=== PATIENT | female | born 1990 | race Caucasian/White ===

== ENCOUNTER 2016-04-21 23:41 | Emergency (ER) | payer MEDICAID ==
[~2016-04-21 23:41] MED LIST: DEMEROL50 MG PO; MOTRIN600 MG PO; PRENATAL COMPLE1 TAB PO
[2016-04-22 00:11] LABS: BASOPHILS 0.2 % (0.0-2.0); EOSINOPHILS 0.8 % (0-7); HEMATOCRIT 38.5 % (36.0-48.0); HEMOGLOBIN 12.8 g/dL (12-16); IMMATURE GRANULOCYTES 0.2 % (0-5); LYMPHOCYTES 26.5 % (15-50); MCH 30.5 pg (26.0-34.0); MCHC 33.2 g/dL (31.0-37.0); MCV 91.7 fL (80.0-100.0); MEAN PLATELET VOLUME 9.8 fL (7.4-10.4); NEUTROPHILS 64.3 % (40-80); PLATELET COUNT 204 10x3/uL (130-400); RDW 13.1 % (11.5-14.5); WBC 10.6 10x3/uL (4.8-10.8)
[2016-04-22 00:20] LABS: HCG SERUM NEGATIVE (NEGATIVE)
[2016-04-22 00:25] LABS: ALBUMIN 3.4 g/dL (3.4-5.0); ALKALINE PHOSPHATASE 89 U/L (46-116); ALT (SGPT) 34 U/L (10-68); BILIRUBIN - TOTAL 0.38 mg/dL (0.2-1.3); CALC OSMOLALITY 279 mosm/kg (275-300); CALCIUM 8.9 mg/dL (8.5-10.1); CARBON DIOXIDE 27.8 mmol/L (21.0-32.0); CHLORIDE - SERUM 105 mmol/L (98-107); CREATININE - SERUM 0.8 mg/dL (0.6-1.3); GLUCOSE 93 mg/dL (74-106); POTASSIUM - SERUM 3.7 mmol/L (3.5-5.1); PROTEIN - SERUM 6.9 g/dL (6.4-8.2); SODIUM 141 mmol/L (136-145); UREA NITROGEN 11 mg/dL (7-18); eGFR NON AFRICAN AMERICAN > 90 mL/min (90-120)
[2016-04-22 00:28] LABS: APPEARANCE HAZY (CLEAR); BACTERIA FEW /hpf (NONE SEEN); BILIRUBIN NEGATIVE (NEGATIVE); COLOR YELLOW (YELLOW); EPITHELIAL CELLS 0-5 /hpf (0-5); GLUCOSE NEGATIVE (NEGATIVE); KETONE NEGATIVE (NEGATIVE); LEUKOCYTE ESTERASE 1+ (NEGATIVE); NITRITE NEGATIVE (NEGATIVE); PROTEIN NEGATIVE (NEGATIVE); RED CELLS - URINE NONE SEEN /hpf (0-5); UROBILINOGEN NORMAL (NORMAL)
== END 2016-04-22 00:40 | disposition home or self-care (01) ==
LOC: D.ER 23:41
PROVIDERS: Emergency Medicine; Physician Assistant Medical
DX: N39.0 Urinary tract infection, site not specified (principal); F17.200 Nicotine dependence, unspecified, uncomplicated

== ENCOUNTER 2018-05-05 12:37 | Emergency (ER) | payer MEDICAID ==
[~2018-05-05] VITALS: Ht 160 cm; Wt 92.3 kg
[2018-05-05 13:04] VITALS: BP 117/73; Ht 160 cm; Wt 92.3 kg
[2018-05-05 13:40] LABS: BASOPHILS 0.1 % (0-2); EOSINOPHILS 0.5 % (0-7); HEMATOCRIT 33.6 % (36.0-48.0); HEMOGLOBIN 11.2 g/dL (12-16); IMMATURE GRANULOCYTES 0.2 % (0-5); LYMPHOCYTES 14.7 % (15-50); MCH 29.6 pg (26.0-34.0); MCHC 33.3 g/dL (31.0-37.0); MCV 88.9 fL (80.0-100.0); MEAN PLATELET VOLUME 10.3 fL (7.4-10.4); MONOCYTES 4.3 % (2-11); NEUTROPHILS 80.2 % (40-80); RBC 3.78 10x6/uL (4.00-5.40); WBC 10.3 10x3/uL (4.8-10.8)
[2018-05-05 13:46] LABS: APPEARANCE SL CLDY (CLEAR); BACTERIA MANY /hpf (NONE SEEN); BILIRUBIN NEGATIVE (NEGATIVE); COLOR YELLOW (YELLOW); EPITHELIAL CELLS 0-5 /hpf (0-5); GLUCOSE NEGATIVE (NEGATIVE); KETONE NEGATIVE (NEGATIVE); MUCUS <1+ /lpf (NONE SEEN); NITRITE NEGATIVE (NEGATIVE); PROTEIN NEGATIVE (NEGATIVE); UROBILINOGEN NORMAL (NORMAL)
[2018-05-05 13:47] LABS: AMORPHOUS SEDIMENT <1+ /lpf (NONE SEEN); GRANULAR CAST RARE /lpf (NONE SEEN); RED CELLS - URINE RARE /hpf (0-5)
[2018-05-05 13:49] LABS: ALBUMIN 2.7 g/dL (3.4-5.0); ALKALINE PHOSPHATASE 100 U/L (46-116); ALT (SGPT) 33 U/L (10-68); BILIRUBIN - TOTAL 0.11 mg/dL (0.2-1.3); CALC OSMOLALITY 275 mosm/kg (275-300); CARBON DIOXIDE 24.2 mmol/L (21.0-32.0); CHLORIDE - SERUM 104 mmol/L (98-107); CREATININE - SERUM 0.7 mg/dL (0.6-1.3); GLUCOSE 85 mg/dL (74-106); POTASSIUM - SERUM 4.1 mmol/L (3.5-5.1); PROTEIN - SERUM 6.7 g/dL (6.4-8.2); SODIUM 139 mmol/L (136-145); UREA NITROGEN 10 mg/dL (7-18); eGFR NON AFRICAN AMERICAN > 90 mL/min (90-120)
[2018-05-05 14:12] LABS: PLATELET COUNT 269 10x3/uL (130-400)
[2018-05-05 14:13] LABS: HCG - QUANTITATIVE (MATERNAL) 17713 mIU/mL
[2018-05-05] MEDS ORDERED: MACROBID100 MG PO (15:51)
== END 2018-05-05 16:15 | disposition home or self-care (01) ==
LOC: D.ER 12:37
PROVIDERS: Emergency Medicine
DX: O26.892 Other specified pregnancy related conditions, second trimester (principal); Z3A.17 17 weeks gestation of pregnancy; R10.2 Pelvic and perineal pain

== ENCOUNTER 2018-08-05 20:08 | Emergency (ER) | payer MEDICAID ==
[~2018-08-05] VITALS: Ht 160 cm; Wt 97.7 kg
[~2018-08-05 20:08] MED LIST changes: +MACROBID100 MG PO
[2018-08-05 20:21] VITALS: Ht 160 cm; Wt 97.7 kg
[2018-08-05] MEDS ORDERED: AMOXICILLIN500 M1 PO (21:24)
[2018-08-05] MEDS ORDERED: MUCINEX600 MG PO (21:26)
[2018-08-05 21:45] VITALS: BP 105/69
== END 2018-08-05 21:45 | disposition home or self-care (01) ==
LOC: D.ER 20:08
DX: J06.9 Acute upper respiratory infection, unspecified (principal)